=== PATIENT | male | born 2000 | race African-American/Black ===

== ENCOUNTER 2019-06-20 22:37 | Emergency (ER) | payer SELFPAY ==
[2019-06-20] MEDS ORDERED: NS 0.9% 1000 ML** 1,000 ML IV ONE (23:03)
[2019-06-20] MEDS ORDERED: Ondansetron INJ* 2 MG/ML VIAL IV ONE (23:05)
--- NOTE | 2019-06-20 23:38 | ED ---
Substance Abuse/Use - HPI Summary HPI Summary: Patient is a 18 year-old male brought in by friends to [facility] for alcohol intoxication tonight. Per friend, the patient drank too much tonight. He had been vomiting for about 20 minutes so his friends decided to bring him into the ED. He did not fall or hit his head. Friend reports no substance use. No known medical history. LEVEL 5 CAVEAT SECONDARY TO ALCOHOL INTOXICATION. History obtained from friend. - History Of Current Complaint Chief Complaint: EDSubstanceAbuse Stated Complaint: ETOH Time Seen by Provider: 06/20/19 23:03 Hx Obtained From: Other: - friend Hx From Patient Unobtainable Due To: Other - Level 5 caveat, alcohol intoxication Timing Of Abuse: Binge Use Severity Initially: Moderate Severity Currently: Mild Associated Signs And Symptoms: Vomiting - Allergies/Home Medications Allergies/Adverse Reactions: Allergies Allergy/AdvReac Type Severity Reaction Status Date / Time Penicillins Allergy Intermediate Rash And Verified 06/21/19 04:21 Itching PMH/Surg Hx/FS Hx/Imm Hx Endocrine/Hematology History: Denies: Hx Diabetes Respiratory History: Denies: Hx Asthma - Surgical History Surgical History: Unable to Obtain/Confirm - level 5 caveat, patient intoxicated - Immunization History Immunizations Up to Date: Yes Infectious Disease History: No Infectious Disease History: Denies: Traveled Outside the [place] in Last 30 Days - [facility], [place] - Family History Family History: Level 5 caveat, alcohol intoxication - Social History Occupation: Student Alcohol Use: monthly Alcohol Amount: binge drinking Hx Substance Use: No Substance Use Type: Reports: None Hx Tobacco Use: No Smoking Status (MU): Never Smoked Tobacco - Additional Comments History Additional Comments: no past medical history per friend Review of Systems - ROS Summary Review of Systems Summary: No Home Medications. Positive: Other - alcohol intoxication Positive: Vomiting All Other Systems Reviewed And Are Negative: No - Comments Additional Review of Systems Comments: LEVEL 5 CAVEAT SECONDARY TO ALCOHOL INTOXICATION. Physical Exam - Summary Physical Exam Summary: General: Well-developed, Well-nourished male. No acute distress. HEENT: Normocephalic, Atraumatic. Eyes: Conjuctiva normal, PERRL. Oropharynx: Clear, mucous membranes moist, (-) exudates. Neck: Soft, FROM, (-) lymphadenopathy, (-) thyromegaly, (-) JVD. Cardiovascular: Normal sinus rhythm, (-) murmur. Lungs: Clear to auscultation bilaterally (-) wheezes, (-) rales, (-) rhonchi. Abdomen: Soft, non-tender, non-distended, (-) organomegaly, normal bowel sounds. Back: (-) CVA tenderness Extremities: No edema. Skin: Warm, dry, (-) rash. Neuro: Asleep, unarousable, lethargic Psychiatric: Deferred Triage Information Reviewed: Yes Vital Signs On Initial Exam: Initial Vitals Temp Pulse Resp BP Pulse Ox 97.2 F 111 20 126/90 95 06/20/19 22:44 06/20/19 22:44 06/20/19 22:44 06/20/19 22:44 06/20/19 22:44 Vital Signs Reviewed: Yes Completion Of Physical Exam Limited Due To: Level 5 - alcohol intoxication Procedures - Sedation Patient Received Moderate/Deep Sedation with Procedure: No Diagnostics - Vital Signs Vital Signs Temp Pulse Resp BP Pulse Ox 06/20/19 22:44 97.2 F 111 20 126/90 95 - Laboratory Result Diagrams: 06/20/19 23:41 06/20/19 23:41 Lab Statement: Any lab studies that have been ordered have been reviewed, and results considered in the medical decision making process. Re-Evaluation - Re-Evaluation First Eval Re-Evaluation Time: 05:45 Change: Improved Comment: Patient awake, ambulating well. He feels safe for discharge. His friend will take him home. Course/Dx - Course Course Of Treatment: 18-year-old male presents by ambulance with acute alcohol intoxication and vomiting. Patient has no signs or history of trauma per his friend. Patient is obviously intoxicated upon arrival. Physical exam otherwise within normal limits. Workup demonstrates a blood alcohol of 234. Patient's rest for multiple hours. He receives IV fluids and Zofran. Patient awakes clinically sober. Alert and oriented 3 with normal gait. Discharged home with friends. Follow-up with PCP. Follow up sooner for any worsening symptoms. - Diagnoses Provider Diagnoses: Alcohol intoxication, Vomiting Discharge ED - Sign-Out/Discharge Documenting (check all that apply): Patient Departure - Patient will be discharged home. - Discharge Plan Condition: Stable Disposition: HOME Patient Education Materials: Alcohol Intoxication (ED) Referrals: [facility] [Provider Group] - 3 Days Additional Instructions: Please follow up with your primary care physician within three days. Please return to ED for any new or worsening symptoms. - Billing Disposition and Condition Condition: STABLE Disposition: Home - Attestation Statements Document Initiated by Darvin: Yes Documenting Scribe: Robina Cisneros Provider For Whom Darvin is Documenting (Include Credential): Leia Tsang MD Scribe Attestation: IRobina, scribed for Leia Tsang MD on 06/21/19 at 0641. Scribe Documentation Reviewed: Yes Provider Attestation: The documentation as recorded by the Robina hart accurately reflects the service I personally performed and the decisions made by me, Leia Tsang MD Status of Scribe Document: Viewed
[2019-06-20 23:48] LABS: ABS Lymphocytes 2.1 10^3/ul (1.0-4.8); ABS Monocytes 0.7 10^3/ul (0-0.8); ABS Neutrophils 7.8 10^3/ul (1.5-7.7); Eosinophil % 0.1 %; Hematocrit 46 % (42-52); Hemoglobin 15.7 g/dL (14.0-18.0); Lymphocyte % 19.9 %; Mean Corpuscular HGB Conc 34 g/dL (31-36); Mean Corpuscular Hemoglobin 30 pg (27-31); Mean Corpuscular Volume 88 fL (80-94); Mean Platelet Volume 7.8 fL (7.4-10.4); Platelet Count 260 10^3/uL (150-450); Red Blood Count 5.17 10^6 /uL (4.18-5.48); Red Cell Distribution Width 13 % (10-15); White Blood Count 10.6 10^3/uL (3.5-10.8)
[2019-06-21 00:03] LABS: ALT 15 U/L (7-52); Albumin 4.7 g/dL (3.2-5.2); Albumin/Globulin Ratio 1.5 (1-3); Alkaline Phosphatase 82 U/L (34-104); BUN/Creatinine Ratio 16.5 (8-20); Blood Urea Nitrogen 20 mg/dL (6-24); CO2 Carbon Dioxide 25 mmol/L (22-32); Calcium 9.9 mg/dL (8.6-10.3); Chloride 103 mmol/L (101-111); EGFR African American 93.5 (>60); EGFR Non-African American 77.3 (>60); Globulin 3.2 g/dL (2-4); Glucose 104 mg/dL (70-100); Sodium 140 mmol/L (135-145); Total Protein 7.9 g/dL (6.4-8.9)
[2019-06-21 00:09] LABS: Acetaminophen < 15 mcg/mL; Alcohol 234 mg/dL (<10); Salicylate < 2.50 mg/dL (<30)
[2019-06-21 00:36] LABS: AST 26 U/L (13-39); Anion Gap 12 mmol/L (2-11); Potassium 3.9 mmol/L (3.5-5.0)
[2019-06-21 06:28] VITALS: BP 110/85
== END 2019-06-21 06:00 | disposition home or self-care (01) ==
LOC: ED 22:37
DX: F10.129 Alcohol abuse with intoxication, unspecified (principal); Y90.7 Blood alcohol level of 200-239 mg/100 ml; R11.10 Vomiting, unspecified; Z88.0 Allergy status to penicillin
CPT/HCPCS: 36415; 80053; 80320; 80329; 83605; 85025; 96374; 99284; G0480; J2405